=== PATIENT | female | born 1995 | race Caucasian/White ===

== ENCOUNTER → 2019-06-11 | Outpatient (CLI) | payer BC ==
[2019-06-11 11:09] LABS: FREE T3 4.13 pg/mL (2.77-5.27); FREE T4 (FREE THYROXINE) 1.45 ng/dL (0.78-2.19)
[2019-06-11 11:23] LABS: THYROID STIMULATING HORMONE 0.73 uIU/mL (0.47-4.68)
[2019-06-12 14:59] LABS: CALCITONIN SERUM <2.0 pg/mL (0.0-5.0); THYROID PEROXIDASE (TPO) AB 11 IU/mL (0-34)
[2019-06-12 18:20] LABS: THYROGLOBULIN AB <1.0 IU/mL (0.0-0.9)
== END ==
LOC: LAB 10:15
PROVIDERS: ATTEND Nurse Practitioner
DX: E03.9 Hypothyroidism, unspecified (principal)
CPT/HCPCS: 36415; 82308; 84439; 84443; 84481; 86376; 86800

== ENCOUNTER → 2019-12-15 | Outpatient (CLI) | payer OTHER ==
[2019-12-15 15:32] LABS: FREE T3 3.26 pg/mL (2.77-5.27); FREE T4 (FREE THYROXINE) 1.23 ng/dL (0.78-2.19)
[2019-12-15 15:45] LABS: THYROID STIMULATING HORMONE 0.57 uIU/mL (0.47-4.68)
== END ==
LOC: LAB 14:40
PROVIDERS: ATTEND Nurse Practitioner
DX: E03.9 Hypothyroidism, unspecified (principal)
CPT/HCPCS: 36415; 84439; 84443; 84481